=== PATIENT | male | born 1985 | race Caucasian/White ===

== ENCOUNTER → 2022-10-13 11:03 | Outpatient (BNVA) | payer MEDICAID, SELFPAY | PROVIDERS: Family Provider Family Medicine; PCP Family Medicine; Visit Provider Podiatrist Foot & Ankle Surgery | DX: E10.9 Type 1 diabetes mellitus without complications (principal); L60.1 Onycholysis; M25.571 Pain in right ankle and joints of right foot; Z79.84 Long term (current) use of oral hypoglycemic drugs | CPT/HCPCS: 73630; 99204 ==

== ENCOUNTER → 2022-10-28 13:41 | Outpatient (BNVA) | payer MEDICAID, SELFPAY | PROVIDERS: Family Provider Family Medicine; PCP Family Medicine; Visit Provider Podiatrist Foot & Ankle Surgery | DX: L60.0 Ingrowing nail (principal); E10.9 Type 1 diabetes mellitus without complications; L60.1 Onycholysis; Z79.84 Long term (current) use of oral hypoglycemic drugs | CPT/HCPCS: 11750; A6219 ==

== ENCOUNTER → 2023-11-26 11:13 | Outpatient (BNVA) | payer MEDICAID, SELFPAY | PROVIDERS: Family Provider Family Medicine; PCP Family Medicine; Visit Provider Nurse Practitioner | DX: R05.9 Cough, unspecified (principal) | CPT/HCPCS: 87426 ==

== ENCOUNTER 2024-04-25 20:08 | Emergency (ER) | payer MEDICAID, SELFPAY ==
[2024-04-25 20:13] VITALS: BP 102/68; PULSE 85; RESP 16; TEMP 36.4; O2SAT 97; BMI 43.8
--- NOTE | 2024-04-25 20:33 | W.ED.EXTPRO ---
HPI - Extremity Problem General: Chief complaint: Extremity Problem,Nontraumatic Stated complaint: Right foot injury Time Seen by Provider: 04/25/24 20:20 Source: patient Mode of arrival: ambulatory Limitations: no limitations History of Present Illness: Patient is a 38-year-old male who presents to ED today with complaint of chronic pain in his right foot and ankle. Patient states he started having issues with it when I was 16 and injured it. He states over the past several weeks he has been on his feet more than usual and pain is more so bothersome. He has not noticed any redness or swelling. No new injuries. Patient states he has seen his primary care provider for the foot but states they were not really wanting to do anything with it . MD Complaint: extremity pain and joint pain Onset (ago): year(s) Pain Consistency: intermittent Location: right and lower extremity Quality: burning Radiation: none Relieving factors: nothing Exacerbating factors: weight bearing and walking Associated symptoms: Reports no associated symptoms Related Data Home Medications Medication Instructions Recorded Confirmed liraglutide 0.6 mg/0.1 mL (18 mg/3 0.6 mg SUBCUT DAILY 10/13/22 11/26/23 mL) subcutaneous pen injector (Victoza 3-Elijah) lisinopril 2.5 mg tablet 2.5 mg PO DAILY 10/13/22 11/26/23 metformin 500 mg tablet 500 mg PO BID 10/13/22 11/26/23 Previous Rx's Medication Instructions Recorded albuterol sulfate 90 mcg/actuation 2 puff inhalation Q6H PRN 11/26/23 aerosol inhaler shortness of breath or wheezing #8.5 grams amoxicillin 875 mg-potassium 1 tab PO BID #14 tabs 11/26/23 clavulanate 125 mg tablet prednisone 20 mg tablet 20 mg PO DAILY #5 tabs 11/26/23 Allergies Allergy/AdvReac Type Severity Reaction Status Date / Time No Known Allergies Allergy Verified 04/25/24 20:18 Review of Systems Musc: Reports: extremity pain and joint pain; Denies: extremity swelling, joint swelling, joint redness, joint warmth or limited range of motion Neuro: Denies: numbness in extremities, weakness in extremities, sensory changes or difficulty walking PFS ED PFSH: Social History Smoking and tobacco/nicotine status: current every day tobacco/nicotine user Physical Exam Const: COMMON NORMALS: no acute distress, average body habitus, no limitations, healthy appearing, alert and well nourished GENERAL APPEARANCE: cooperative Extremity: COMMON NORMALS: normal to inspection, full ROM, capillary refill normal, no joint enlargement, no clubbing, cyanosis or edema, no calf tenderness and no pedal edema GENERAL: Yes normal exam except as noted RIGHT LOWER EXTREMITY: Yes foot & digits (TTP lateral ankle) Right ankle: Yes inspection (normal), Yes ROM (normal) and Yes neurovascular exam (normal) and Yes foot & digits (TTP proximal lateral foot) Right foot and digits: Yes inspection (normal), Yes ROM (normal) and Yes neurovascular exam (normal ) Neuro: COMMON NORMALS: moves all extremities, no focal motor deficits, no sensory deficits noted and gait normal SENSORIUM/ORIENTATION: Yes alert Skin: COMMON NORMALS: no rashes or lesions noted GENERAL SKIN EXAM: no rashes or lesions noted Course Vital Signs: Vital signs: Vital Signs Temperature 97.6 F 04/25/24 20:13 Pulse Rate 85 04/25/24 20:13 Respiratory Rate 16 04/25/24 20:13 Blood Pressure 102/68 04/25/24 20:13 Pulse Oximetry 97 04/25/24 20:13 Oxygen Delivery Me thod Room Air 04/25/24 20:13 MDM - Extremity (Nontraumatic) Medical Decision Making Patient here for acute on chronic right foot and ankle pain. He has had this pain since the age of 16 . Patient tells me he is never followed up with a specialist for his pain however after discharge and after referral placed for podiatry, looking at previous documentation, he has seen Dr. Lisa for his feet before and he has addressed the right foot and ankle pain. No need for emergent imaging on today's visit. There is nothing further that needs to be done from an emergency standpoint. No radiology studies performed this visit Discharge Plan Discharge Patient Disposition: Home Clinical Impression: Pain in right ankle Qualifiers: Chronicity: chronic Qualified Code(s): M25.571 - Pain in right ankle and joints of right foot Condition: Stable Prescriptions: No Action Victoza 3-Elijah 0.6 mg/0.1 mL (18 mg/3 mL) pen injector 0.6 mg SUBCUT DAILY metformin 500 mg tablet 500 mg PO BID lisinopril 2.5 mg tablet 2.5 mg PO DAILY amoxicillin-pot clavulanate 875-125 mg tablet 1 tab PO BID Qty: 14 0RF prednisone 20 mg tablet 20 mg PO DAILY Qty: 5 0RF albuterol sulfate 90 mcg/actuation HFA aerosol inhaler 2 puff inhalation Q6H PRN (Reason: shortness of breath or wheezing) Qty: 8.5 0RF Discharge Orders: Discharge ED (Routine); Ordered 04/25/24 Ordered By: Mariaa Mauricio Referrals: Nuha Muhammad DO [Primary Care Provider] - Coding Level of Care Code ED Senior [employer] for Michelle Ibarra
[2024-04-25 20:51] VITALS: BP 102/68; PULSE 85; O2SAT 97
--- NOTE | 2024-04-27 07:33 | DCPLANNER ---
Message sent to podiatry
== END 2024-04-25 20:51 | disposition home or self-care (01) ==
PROVIDERS: Emergency Provider Physician Assistant; Family Provider Family Medicine; PCP Family Medicine
DX: M25.571 Pain in right ankle and joints of right foot (principal); Z79.84 Long term (current) use of oral hypoglycemic drugs; Z72.0 Tobacco use
CPT/HCPCS: 99281

== ENCOUNTER → 2024-05-19 09:29 | Outpatient (BNVA) | payer MEDICAID, SELFPAY | PROVIDERS: Family Provider Family Medicine; PCP Family Medicine; Visit Provider Podiatrist Foot & Ankle Surgery | DX: M25.571 Pain in right ankle and joints of right foot (principal); E10.9 Type 1 diabetes mellitus without complications; Z79.84 Long term (current) use of oral hypoglycemic drugs; Q66.89 Other specified congenital deformities of feet | CPT/HCPCS: 73610; 99213 ==

== ENCOUNTER 2024-06-06 15:17 | Outpatient (CLI) | payer MEDICAID, SELFPAY ==
--- NOTE | 2024-06-06 15:30 | CT_ITS ---
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 DLP: 127.20 mGy.cm COMPARISON: 10/13/2022 radiograph Minimal elongation of the anterior process of the calcaneus. There is marked narrowing with irregularity involving the entire middle subtalar joint. There is also slight but less extensive narrowing and sclerosis along the extra-articular talocalcaneal articulation. Broad-based articular irregularities involving the middle subtalar joint consistent with a fibrous coalition. There does appear to be a very short segment osseous coalition present also seen best on image 53 of series 3. This is seen involving only a very small segment in the posterior articulation. Minimal anterior talar beaking. Prominent hypertrophic bone from the posterior talus. No fractures. Lucency in the central subtalar portion of the calcaneus most consistent with lipomas. No joint effusion. CT/CT ankle RT wo con* [id number] IMPRESSION: 1. 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 Sh ort segment osseous coalition along the posterior extra-articular facet. 2. Broad-based irregular fibrous coalition at the mid subtalar joint. 3. Mild talar beaking and mild elongation of the anterior calcaneal process.
== END 2024-06-06 15:18 | disposition home or self-care (01) ==
LOC: RAD 15:21
PROVIDERS: Family Provider Family Medicine; PCP Family Medicine; Visit Provider Podiatrist Foot & Ankle Surgery
DX: Q66.89 Other specified congenital deformities of feet (principal); R93.6 Abnormal findings on diagnostic imaging of limbs
CPT/HCPCS: 73700

== ENCOUNTER → 2024-06-20 13:07 | Outpatient (BNVA) | payer MEDICAID, SELFPAY | PROVIDERS: Family Provider Family Medicine; PCP Family Medicine; Visit Provider Podiatrist Foot & Ankle Surgery | DX: Q66.89 Other specified congenital deformities of feet (principal); E10.9 Type 1 diabetes mellitus without complications; M79.671 Pain in right foot; M25.571 Pain in right ankle and joints of right foot; G89.29 Other chronic pain; M19.071 Primary osteoarthritis, right ankle and foot; Z79.84 Long term (current) use of oral hypoglycemic drugs | CPT/HCPCS: 99213 ==

== ENCOUNTER → 2024-12-21 12:38 | Outpatient (BNVA) | payer MEDICAID, SELFPAY | PROVIDERS: Family Provider Family Medicine; Visit Provider Podiatrist Foot & Ankle Surgery | DX: Q66.89 Other specified congenital deformities of feet (principal); E10.9 Type 1 diabetes mellitus without complications; M19.071 Primary osteoarthritis, right ankle and foot; Z79.84 Long term (current) use of oral hypoglycemic drugs | CPT/HCPCS: 99214 ==

== ENCOUNTER → 2025-03-01 10:42 | Outpatient (BNVA) | payer MEDICAID, SELFPAY | PROVIDERS: Family Provider Family Medicine; Visit Provider Podiatrist Foot & Ankle Surgery | DX: Q66.89 Other specified congenital deformities of feet (principal); E10.9 Type 1 diabetes mellitus without complications; M19.071 Primary osteoarthritis, right ankle and foot | CPT/HCPCS: 73630; 99214 ==